=== PATIENT | male | born 1980 | race African-American/Black ===

== ENCOUNTER 2017-05-21 16:55 | Emergency (ER) | payer OTHER ==
[~2017-05-21] VITALS: Ht 180.3 cm; Wt 86.0 kg
[2017-05-21 21:02] VITALS: BP 130/72
== END 2017-05-21 21:03 | disposition home or self-care (01) ==
LOC: EME 16:55
PROC: 0H9EXZZ Drainage of Left Lower Arm Skin, External Approach (ICD-10-PCS; principal; 2017-05-21)
DX: L02.414 Cutaneous abscess of left upper limb (principal); Z86.14 Personal history of Methicillin resistant Staphylococcus aureus infection
CPT/HCPCS: 99281; 99283